=== PATIENT | female | born 1990 | race Caucasian/White ===

== ENCOUNTER 2020-03-09 04:40 | Day surgery (SDC) | payer OTHER ==
[2020-03-07 17:00] VITALS: BMI 27.8
[2020-03-09] MEDS ORDERED: ONDANSETRON 4 MG/2 ML VIAL IVPUSH PRN (09:05)
[2020-03-09] MEDS ORDERED: ACETAMINOPHEN 325 MG TABLET (FP) PO PRN (09:05)
[2020-03-09] MEDS ORDERED: oxyCODONE HCL 5 MG TABLET PO PRN (09:05)
[2020-03-09] MEDS ORDERED: LACTATED RINGERS SOLUTION 1,000 ML IV SCH (09:15)
[2020-03-09] MEDS ORDERED: LIDOCAINE HCL/PF 2% SDV 5ML VIAL ONE (09:26)
[2020-03-09] MEDS ORDERED: CLINDAMYCIN PHOSPHATE 600 MG/4 ML VIAL ONE (09:26)
[2020-03-09] MEDS ORDERED: MIDAZOLAM HCL 2 MG/2 ML SINGLE DOSE VIAL ONE (09:27)
[2020-03-09] MEDS ORDERED: PROPOFOL 20 ML ONE ×2 (09:27)
[2020-03-09] MEDS ORDERED: CLINDAMYCIN PHOSPHATE 600 MG/4 ML VIAL IVPB ONE (09:53)
[2020-03-09] MEDS ORDERED: LIDOCAINE HCL 1%, 10 MG/ML (20ML VIAL) NR ONE (09:55)
[2020-03-09] MEDS ORDERED: KETOROLAC TROMETHAMINE 30 MG/1 ML VIAL ONE (10:55)
[2020-03-09] MEDS ORDERED: BUPIVACAINE HCL/PF 0.25% (2.5MG/ML) 10 ML VIAL IJ ONE (11:00)
[2020-03-09] MEDS ORDERED: ONDANSETRON 4 MG/2 ML VIAL ONE (12:37)
[2020-03-09] MEDS ORDERED: ACETAMINOPHEN 325 MG TABLET (FP) ONE (14:08)
[2020-03-09 14:40] VITALS: BP 130/55; PULSE 76; TEMP 97.3
--- NOTE | 2020-03-12 12:32 | PATH ---
Surgical Pathology Report Patient Name: ROCIO ROGEL Med. Rec. #: [id number] /Age/Gender: 1990 (Age: 29) / F Account: [id number] Location: [facility] SURGICAL Taken: 03/09/2020 Received: 03/09/2020 Reported: 03/12/2020 Physicians: Delonte Saenz DPM Specimen(s) Received BONES, BILATERAL BUNION Clinical History Bilateral bunions Final Diagnosis BONES, BILATERAL BUNION, BUNIONECTOMY: BONE(S) WITH FATTY MARROW AND DEGENERATIVE CHANGES. Electronically Signed Hali Boucher M.D. Gross Description Received in formalin labeled "bones bilateral bunion," are 6 cox-yellow portions of bone ranging from 1.0 x 0.3 x 0.2 cm to 1.5 x 1.4 x 0.3 cm. Final Finisher sections are submitted in one cassette, following decalcification. /03/09/2020 [facility]/09/2020
--- NOTE | 2020-03-13 11:59 | OP ---
DATE OF OPERATION: 03/09/2020 SURGEON: Delonte Saenz DPM PREOPERATIVE DIAGNOSES: 1. Right foot hallux valgus. 2. Left foot hallux valgus. POSTPROCEDURE DIAGNOSES: 1. Right foot hallux valgus. 2. Left foot hallux valgus. PROCEDURE: 1. Silver bunionectomy, right foot. 2. Silver bunionectomy, left foot. PATHOLOGY: Bone and soft tissue. ANESTHESIA: Local with MAC. HEMOSTASIS: Pneumatic ankle tourniquet at 250 mmHg. ESTIMATED BLOOD LOSS: Minimal. MATERIALS: Betadine-soaked Adaptic, 4 x 4's and Kerlix. INJECTABLES: Preop 20 mL total of a 1:1 mixture of lidocaine 1% plain and Marcaine 0.5% plain with 10 mL to each foot individually; postoperatively was 10 mL total, 5 mL to each foot, of Marcaine 0.5% plain. CONDITION: Stable. COMPLICATIONS: None. DESCRIPTION OF PROCEDURE: The patient was brought to the operating room and placed on the operating room table in the supine position. After appropriate timeout procedures, administration of preoperative antibiotics and identification of procedures, MAC anesthesia was initiated by the anesthesia team. After adequate sedation, local anesthetic block was administered to the right and left foot using a 1:1 mixture of lidocaine 1% plain and 0.5% Marcaine plain for a total of 20 mL used. A well-padded pneumatic ankle tourniquet was then applied to the bilateral ankle. The right foot and left foot were prepped and draped in the usual aseptic manner. An Esmarch bandage was then utilized to first exsanguinate the patient's left foot and the left tourniquet was inflated to 250 mmHg. Surgery began in the following manner: Attention was directed to the dorsal medial aspect of the 1st metatarsal of the left foot where a linear incision was made at the dorsal aspect of the 1st metatarsophalangeal joint. It was approximately 2 cm in length. The incision was deepened through the subcutaneous tissues using sharp and blunt dissection. Care was taken to identify and retract all vital neural and vascular structures. Next, a linear capsulotomy was performed to the dorsal aspect of the 1st metatarsophalangeal joint. The periosteal and capsular structures were then carefully dissected free of the osseous attachments and reflected medially and laterally exposing the base of the proximal phalanx at the operative site. It was noted that the head was hypertrophied on its medial, lateral and dorsal aspects. Next, utilizing a sagittal bone saw, the medial prominence was resected and pulled from the operative field. The sagittal bone saw was then used to resect the dorsal prominence which was also cleared free of the operative field and the bone was then smoothed with a saw blade. The surgical field was copiously flushed with normal saline. The capsule was then closed with 2-0 Vicryl. The subcutaneous level was closed with 3-0 Vicryl and the skin was closed with 3-0 nylon. At this point the tourniquet was lowered on the left and inflated on the right. Attention was then directed to the dorsal aspect of the 1st metatarsal head of the right foot where a linear longitudinal incision was made medial and parallel to the of the extensor hallucis longus approximately 2 cm in length. The incision was deepened through the subcutaneous tissues using sharp and blunt dissection. Care was then taken to retract all vital neural and vascular structures. Next, a linear capsulotomy was performed to the dorsal aspect of the 1st metatarsophalangeal joint. The periosteal and capsular structures were then carefully dissected free of their osseous attachments and reflected medially and laterally exposing the base of the proximal phalanx and through the operative site it was noted that the head was hypertrophied on the medial and dorsal aspects. Next, utilizing a sagittal bone saw, the medial prominence was resected from the operative field. Sagittal bone saw was then used to also resect the dorsal prominence which was cleared from the operative field. The bone was then smoothed with the saw blade. The surgical site was copiously flushed with normal saline and the capsule was closed with 2-0 Vicryl. The subcutaneous layer was closed with 3-0 Vicryl and the skin was closed with 3-0 nylon. At this point the tourniquet was deflated on the right. Then the surgical sites were dressed with Adaptic, 4 x 4's and Jenna. The patient tolerated the above procedure well and anesthesia well, and left the operating room to the recovery room with vascular status intact and vital signs stable to the left and right feet. DELONTE SAENZ DPM [id number]
== END 2020-03-09 14:40 | disposition home or self-care (01) ==
LOC: JASU-SURG 04:40
PROVIDERS: ATTEND Podiatrist Foot Surgery
PROC: 0QSN04Z Reposition Right Metatarsal with Internal Fixation Device, Open Approach (ICD-10-PCS; 2020-03-09)
PROC: 0QSP04Z Reposition Left Metatarsal with Internal Fixation Device, Open Approach (ICD-10-PCS; principal; 2020-03-09 09:00)
DX: M20.12 Hallux valgus (acquired), left foot (principal); M20.11 Hallux valgus (acquired), right foot
CPT/HCPCS: 84703; 88304-TC; 88311-TC; 94760